=== PATIENT | female | born 1985 | race Caucasian/White ===

== ENCOUNTER 2019-11-05 19:51 | Emergency (ER) | payer MEDICAID ==
[2019-11-05 21:30] LABS: BASOPHILS # (AUTO) 0.1 10^3/uL (0.0-0.1); BASOPHILS % (AUTO) 0.5 %; EOSINOPHILS # (AUTO) 0.2 10^3/uL (0.0-0.7); EOSINOPHILS % (AUTO) 1.6 %; HGB - HEMOGLOBIN 11.2 g/dL (12.0-16.0); LYMPHOCYTES # (AUTO) 2.8 10^3/uL (1.5-3.5); LYMPHOCYTES % (AUTO) 30.5 %; MEAN CORPUSCULAR HEMOGLOBIN 30.9 pg (27.0-31.0); MEAN CORPUSCULAR VOLUME 96.4 fL (81.0-99.0); MEAN PLATELET VOLUME 8.8 fL (7.9-10.8); MONOCYTES # (AUTO) 0.8 10^3/uL (0.0-1.0); MONOCYTES % (AUTO) 8.9 %; NEUTROPHILS # (AUTO) 5.4 10^3/uL (1.5-6.6); NEUTROPHILS % (AUTO) 58.2 %; PLT - PLATELET COUNT 337 10^3/uL (130-450); RED BLOOD COUNT 3.63 10^6/uL (4.20-5.40); RED CELL DISTRIBUTION WIDTH 14.1 % (12.0-15.0); WHITE BLOOD COUNT 9.3 x10^3/uL (4.8-10.8)
[2019-11-05 21:42] LABS: ALBUMIN 4.1 g/dL (3.2-5.5); ALBUMIN/GLOBULIN RATIO 1.2 (1.0-2.2); BILIRUBIN,TOTAL 0.5 mg/dL (0.2-1.0); CALCIUM 9.1 mg/dL (8.5-10.3); CREATININE 0.8 mg/dL (0.4-1.0); TOTAL PROTEIN 7.4 g/dL (6.7-8.2)
--- NOTE | 2019-11-05 21:43 | ED Physician Documentation ---
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 She became lightheaded and felt like she might pass out, and had generalized weakness and difficulty maintaining a steady gait or even standing upright. Denies palpitations. Symptoms have resolved by the time of this H+P Review of Systems Constitutional: reports: Reviewed and negative Cardiac: reports: Chest pain / pressure. denies: Palpitations, Pedal edema, Calf pain Respiratory: reports: Dyspnea. denies: Cough GI: reports: Reviewed and negative Neurologic: reports: Generalized weakness. 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: Tubal ligation Cardiovascular: Pacemaker - Present Medications Home Medications: Ambulatory Orders Medication Instructions Recorded Confirmed No Known Home Medications 11/05/19 11/05/19 - Allergies Allergies/Adverse Reactions: Allergies Allergy/AdvReac Type Severity Reaction Status Date / Time Benzodiazepines Allergy Unknown Verified 11/05/19 21:21 pineapple Allergy Unknown Verified 11/05/19 19:58 - Social History Does the pt smoke?: No Smoking Status: Never smoker Does the pt drink ETOH?: No Does the pt have substance abuse?: No - Immunizations Immunizations are current?: Yes - POLST Patient has POLST: No PD ED PE NORMAL - Vitals Vital signs reviewed: Yes - General General: Alert and oriented X 3, No acute distress, Well developed/nourished - Cardiac Cardiac: RRR, No murmur - Respiratory Respiratory: No respiratory distress, Clear bilaterally - Abdomen Abdomen: Soft, Non tender - Derm Derm: Normal color, Warm and dry - Extremities Extremities: No edema Results - Vitals Vitals: Oxygen O2 Source Room air - EKG (time done) No standard instances Rate: Rate (enter#) (82) Rhythm: NSR [place]: Normal Intervals: Normal [place], Wide QRS (NSIVCD) QRS: Normal Ischemia: Normal ST segments - Labs Labs: Laboratory Tests 11/05/19 11/05/19 11/05/19 21:23 21:23 21:23 WBC 9.3 RBC 3.63 L Hgb 11.2 L Hct 35.0 L MCV 96.4 MCH 30.9 MCHC 32.0 RDW 14.1 Plt Count 337 MPV 8.8 Neut # (Auto) 5.4 Lymph # (Auto) 2.8 [place] # (Auto) 0.8 Eos # (Auto) 0.2 Baso # (Auto) 0.1 Absolute Nucleated RBC 0.00 Nucleated RBC % 0.0 D-Dimer 211.4 Sodium 139 Potassium 3.7 Chloride 103 Carbon Dioxide 26 Anion Gap 10.0 BUN 13 Creatinine 0.8 Estimated GFR (MDRD) 83 L Glucose 91 Calcium 9.1 Total Bilirubin 0.5 AST 24 ALT 24 Alkaline Phosphatase 46 Total Protein 7.4 Albumin 4.1 Globulin 3.3 Albumin/Globulin Ratio 1.2 Lipase 31 PD MEDICAL DECISION MAKING - ED course Complexity details: reviewed results, re-evaluated patient, considered differential, d/w patient Departure - Departure Disposition: 01 Home, Self Care Clinical Impression: Near syncope Condition: Good Instructions: ED Near Syncope Unkn Follow-Up: Brandon Cardoza MD [Primary Care Provider] - Discharge Date/Time: 11/05/19 23:48
[2019-11-05 23:46] VITALS: BP 149/75
== END 2019-11-05 23:48 | disposition home or self-care (01) ==
LOC: ED 19:51
DX: R55 Syncope and collapse (principal)
CPT/HCPCS: 36415; 80053; 83690; 85025; 85379; 93005; 99284

== ENCOUNTER 2021-05-09 15:30 | Emergency (ER) | payer MEDICAID ==
--- NOTE | 2021-05-09 15:40 | ED Physician Documentation ---
History of Present Illness - Stated complaint Stated Complaint: TACHICARDIA - History obtained from History obtained from: Patient - Additonal information Additional information: 36-year-old woman with history of dextrocardia and third-degree heart block with pacemaker in place. Has a history of tachydysrhythmias and was previously on metoprolol, she thinks 50 mg once a day for same. Has not been on it in several years. She has a pacemaker in place, its 5 years old. Over the last 2 weeks she has noticed generally asymptomatic tachycardias, often at night with resting heart rates in the 120s. Today at work she noticed the rapid heart rate and then had a presyncopal episode. There was no injury. No associated chest pain or trouble breathing. 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 Cardiovascular: Pacemaker - Present Medications Home Medications: Ambulatory Orders Medication Instructions Recorded Confirmed Metoprolol Succinate [Toprol Xl] 50 mg PO DAILY #90 tablet 05/09/21 - Allergies Allergies/Adverse Reactions: Allergies Allergy/AdvReac Type Severity Reaction Status Date / Time Benzodiazepines Allergy Unknown Verified 05/09/21 15:47 pineapple Allergy Unknown Verified 05/09/21 15:47 - Social History Does the pt smoke?: No Smoking Status: Never smoker Does the pt drink ETOH?: No Does the pt have substance abuse?: No - Immunizations Immunizations are current?: Yes - POLST Patient has POLST: No PD ED PE NORMAL - Vitals Vital signs reviewed: Yes - General General: Alert and oriented X 3, No acute distress - HEENT HEENT: PERRL, EOMI - Neck Neck: Supple, no meningeal sign, No bony TTP - Cardiac Cardiac: RRR, No murmur - Respiratory Respiratory: No respiratory distress, Clear bilaterally - Abdomen Abdomen: Normal bowel sounds, Soft, Non tender - Back Back: No CVA TTP, No spinal TTP - Derm Derm: Normal color, Warm and dry - Extremities Extremities: No edema, No calf tenderness / cord - Neuro Neuro: Alert and oriented X 3, Normal speech Results - Vitals Vitals: Vital Signs - 24 hr 05/09/21 05/09/21 15:43 16:19 Temperature 36.7 C 36.7 C Heart Rate 74 69 Respiratory 16 19 Rate Blood Pressure 133/83 H 98/70 O2 Saturation 99 99 Oxygen O2 Source Room air - EKG (time done) 1526 Rate: Rate (enter#) (84) Rhythm: NSR [place]: Normal Intervals: Normal [place] QRS: Normal Ischemia: Non specific changes Compare to prior EKG: Unchanged from prior EKG (no chg from 10/2019) - Labs Labs: Laboratory Tests 05/09/21 05/09/21 05/09/21 16:00 16:00 16:00 WBC 7.3 RBC 3.77 L Hgb 11.8 L Hct 36.1 L MCV 95.8 MCH 31.3 H MCHC 32.7 RDW 13.1 Plt Count 369 MPV 9.0 Neut # (Auto) 5.0 Lymph # (Auto) 1.5 [place] # (Auto) 0.6 Eos # (Auto) 0.1 Baso # (Auto) 0.1 Absolute Nucleated RBC 0.00 Nucleated RBC % 0.0 Sodium 136 Potassium 3.4 L Chloride 102 Carbon Dioxide 26 Anion Gap 8.0 BUN 9 Creatinine 1.0 Estimated GFR (MDRD) 63 L Glucose 116 H Calcium 9.2 Magnesium 1.9 TSH 0.65 PD MEDICAL DECISION MAKING - ED course ED course: 36-year-old woman with history of tachydysrhythmias and bradycardias with pacemaker in place presents after a symptomatic tachydysrhythmia. No arrhythmias on the monitor here. We will restart her metoprolol also potassium supplementation orally. 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 Pending follow-up with casino host I am restarting metoprolol. I am prescribing a full 3 months worth since sometimes it is difficult to get into a casino host these days.
[2021-05-09 16:14] LABS: BASOPHILS # (AUTO) 0.1 10^3/uL (0.0-0.1); BASOPHILS % (AUTO) 0.7 %; EOSINOPHILS # (AUTO) 0.1 10^3/uL (0.0-0.7); EOSINOPHILS % (AUTO) 0.8 %; HCT - HEMATOCRIT 36.1 % (37.0-47.0); HGB - HEMOGLOBIN 11.8 g/dL (12.0-16.0); LYMPHOCYTES # (AUTO) 1.5 10^3/uL (1.5-3.5); LYMPHOCYTES % (AUTO) 21.2 %; MEAN CORPUSCULAR HEMOGLOBIN 31.3 pg (27.0-31.0); MEAN CORPUSCULAR HGB CONC 32.7 g/dL (32.0-36.0); MEAN CORPUSCULAR VOLUME 95.8 fL (81.0-99.0); MONOCYTES # (AUTO) 0.6 10^3/uL (0.0-1.0); MONOCYTES % (AUTO) 7.8 %; NEUTROPHILS % (AUTO) 69.2 %; PLT - PLATELET COUNT 369 10^3/uL (130-450); RED BLOOD COUNT 3.77 10^6/uL (4.20-5.40); RED CELL DISTRIBUTION WIDTH 13.1 % (12.0-15.0); WHITE BLOOD COUNT 7.3 x10^3/uL (4.8-10.8)
[2021-05-09 16:19] LABS: CALCIUM 9.2 mg/dL (8.5-10.3); MAGNESIUM 1.9 mg/dL (1.7-2.8); POTASSIUM 3.4 mmol/L (3.5-5.0)
[2021-05-09] MEDS ORDERED: METOPROLOL SUCCINATE 50 MG TABLET PO STA (16:49)
[2021-05-09] MEDS ORDERED: POTASSIUM CHLORIDE 20 MEQ TABLET PO STA (16:50)
[2021-05-09 18:50] VITALS: BP 128/79
== END 2021-05-09 18:50 | disposition home or self-care (01) ==
LOC: ED 15:30
DX: I47.1 Supraventricular tachycardia (principal); Z95.0 Presence of cardiac pacemaker
CPT/HCPCS: 36415; 80048; 83735; 84443; 85025; 93005; 99284; A9270

== ENCOUNTER 2021-05-16 19:12 | Emergency (ER) | payer OTHER, MEDICAID ==
[2021-05-16 19:40] VITALS: BP 150/87
[2021-05-16 19:55] LABS: HCT - HEMATOCRIT 36.6 % (37.0-47.0); HGB - HEMOGLOBIN 11.8 g/dL (12.0-16.0); MEAN CORPUSCULAR HEMOGLOBIN 31.4 pg (27.0-31.0); MEAN CORPUSCULAR HGB CONC 32.2 g/dL (32.0-36.0); MEAN CORPUSCULAR VOLUME 97.3 fL (81.0-99.0); MEAN PLATELET VOLUME 8.6 fL (7.9-10.8); RED BLOOD COUNT 3.76 10^6/uL (4.20-5.40); RED CELL DISTRIBUTION WIDTH 13.2 % (12.0-15.0); WHITE BLOOD COUNT 10.5 x10^3/uL (4.8-10.8)
[2021-05-16 20:07] LABS: ALBUMIN 4.4 g/dL (3.2-5.5); ALBUMIN/GLOBULIN RATIO 1.3 (1.0-2.2); BILIRUBIN,TOTAL 0.6 mg/dL (0.2-1.0); CALCIUM 9.2 mg/dL (8.5-10.3); CREATININE 0.8 mg/dL (0.4-1.0); POTASSIUM 3.2 mmol/L (3.5-5.0); TOTAL PROTEIN 7.9 g/dL (6.7-8.2)
[2021-05-16 20:14] LABS: GLUCOSE, URINE (UA) NEGATIVE (NEGATIVE); KETONES,URINE (UA) TRACE mg/dL (NEGATIVE); LEUKOCYTE ESTERASE, URINE NEGATIVE (NEGATIVE); NITRITE,URINE NEGATIVE (NEGATIVE); OCCULT BLOOD,URINE NEGATIVE (NEGATIVE); PH,URINE 5.5 PH (5.0-7.5); PROTEIN,URINE NEGATIVE (NEGATIVE); UROBILINOGEN,URINE 0.2 (NORMAL) E.U./dL (NORMAL)
--- NOTE | 2021-05-16 20:14 | ED Physician Documentation ---
History of Present Illness - Stated complaint Stated Complaint: EXPOSURE - Chief complaint Chief Complaint: General - Additonal information Additional information: 36-year-old female who works here at [employer] is checking into the ER after a blood exposure. She was helping a provider suture when a little bit of blood splashed on the lower corner of her left eyelid. She immediately went to rinse her eye. But was told she needed to check in. No previous history of HIV or hepatitis. 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 Cardiovascular: Pacemaker - Present Medications Home Medications: Ambulatory Orders Medication Instructions Recorded Confirmed Metoprolol Succinate [Toprol Xl] 50 mg PO DAILY #90 tablet 05/09/21 Cyclosporine, Modified 100 mg PO BID 05/16/21 05/16/21 [Cyclosporine Modified] Etanercept [Enbrel] 05/16/21 - Allergies Allergies/Adverse Reactions: Allergies Allergy/AdvReac Type Severity Reaction Status Date / Time Benzodiazepines Allergy Unknown Verified 05/16/21 19:36 pineapple Allergy Unknown Verified 05/16/21 19:36 - Social History Does the pt smoke?: No Smoking Status: Never smoker Does the pt drink ETOH?: No Does the pt have substance abuse?: No - Immunizations Immunizations are current?: Yes - POLST Patient has POLST: No PD ED PE NORMAL - General General: Alert and oriented X 3, No acute distress - HEENT HEENT: PERRL - Neck Neck: Supple, no meningeal sign - Cardiac Cardiac: RRR, No murmur - Respiratory Respiratory: Clear bilaterally - Abdomen Abdomen: Normal bowel sounds, Soft, Non tender, Non distended Results - Vitals Vitals: Vital Signs - 24 hr 05/16/21 19:36 Temperature 36.5 C Heart Rate 70 Respiratory 16 Rate Blood Pressure 150/87 H O2 Saturation 98 Oxygen O2 Source Room air - Labs Labs: Laboratory Tests 05/16/21 05/16/21 19:50 19:50 WBC 10.5 RBC 3.76 L Hgb 11.8 L Hct 36.6 L MCV 97.3 MCH 31.4 H MCHC 32.2 RDW 13.2 Plt Count 319 MPV 8.6 Sodium 138 Potassium 3.2 L Chloride 102 Carbon Dioxide 27 Anion Gap 9.0 BUN 12 Creatinine 0.8 Estimated GFR (MDRD) 82 L Glucose 108 H Calcium 9.2 Total Bilirubin 0.6 AST 17 ALT 21 Alkaline Phosphatase 52 Total Protein 7.9 Albumin 4.4 Globulin 3.5 Albumin/Globulin Ratio 1.3 PD MEDICAL DECISION MAKING - ED course Complexity details: d/w patient ED course: 36-year-old employee here who was checked into the ER after blood exposure. A small droplet of blood splashed onto her left eye when she was helping a provider suture. This seem to be on the lower lid itself and not within the conjunctiva. She rinsed her eye thoroughly. Screening hepatitis and HIV labs are pending. She is to follow-up with employee health in about 6 weeks to ensure seroconversion has not occurred though this is very low risk. Pep prophylaxis is not indicated or offered at this time. Departure - Departure Disposition: 01 Home, Self Care Clinical Impression: Exposure to blood or body fluid Condition: Stable Record reviewed to determine appropriate education?: Yes Comments: Veronique you are seen in the emergency department after a blood exposure. A small droplet of blood splashed on your lower eyelid. This is a very low risk exposure. We have obtained blood to check your status for HIV and hepatitis. However postexposure prophylaxis with antivirals is not recommended at this time considering the low risk exposure. You do need to follow-up with employee health in about 6 to 8 weeks to have your labs rechecked to ensure that there is no seroconversion.
[2021-05-16 20:16] LABS: BILIRUBIN,URINE NEGATIVE (NEGATIVE); CLARITY,URINE CLEAR (CLEAR); ICTOTEST,URINE NEGATIVE
[2021-05-18 10:51] LABS: HEPATITIS C ANTIBODY NON-REACTIVE (NON-REACTIVE)
[2021-05-18 15:12] LABS: HIV AG/AB 4TH GEN NON-REACTIVE (NON-REACTIVE)
== END 2021-05-16 20:20 | disposition home or self-care (01) ==
LOC: ED 19:12
DX: Z77.21 Contact with and (suspected) exposure to potentially hazardous body fluids (principal)
CPT/HCPCS: 36415; 80053; 81001; 81003; 85027; 86317; 86803; 87086; 87389; 99281; 99283

== ENCOUNTER 2022-05-22 20:44 | Emergency (ER) | payer MEDICAID ==
[2022-05-22 20:51] VITALS: BP 143/80
[2022-05-22] MEDS ORDERED: DOXYCYCLINE 100 MG TABLET PO STA (22:00)
[2022-05-22] MEDS ORDERED: AZITHROMYCIN 250 MG TABLET PO STA (22:04)
--- NOTE | 2022-05-22 22:06 | ED Physician Documentation ---
PD HPI URI - Stated complaint Stated Complaint: COUGH,CHEST PX - Chief complaint Chief Complaint: Resp - History obtained from History obtained from: Patient - Additional information Additional information: Patient presenting for evaluation of productive cough that has been present since May 08. Patient has had televisit with her primary care doctor and has been using codeine as well as Tessalon without improvement in her symptoms. Patient is on Stelara for psoriasis And PCP recommended that she have a chest x- ray to evaluate for pneumonia.Cough is productive of yellow sputum. No hemoptysis.Nothing makes her symptoms better or worse. She has taken multiple home COVID test which have all been negative.She denies fever, chest pain, abdominal pain, vomiting or diarrhea. 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 Cardiovascular: Pacemaker - Present Medications Home Medications: Ambulatory Orders Medication Instructions Recorded Confirmed Metoprolol Succinate [Toprol Xl] 50 mg PO DAILY #90 tablet 05/09/21 Cyclosporine, Modified 100 mg PO BID 05/16/21 05/16/21 [Cyclosporine Modified] Etanercept [Enbrel] 05/16/21 Azithromycin [Zithromax] 1 tab PO DAILY #4 tab 05/22/22 Doxycycline Hyclate 100 mg PO BID #14 tab 05/22/22 - Allergies Allergies/Adverse Reactions: Allergies Allergy/AdvReac Type Severity Reaction Status Date / Time Benzodiazepines Allergy Unknown Verified 05/16/21 19:36 pineapple Allergy Unknown Verified 05/16/21 19:36 - Social History Does the pt smoke?: No Smoking Status: Never smoker Does the pt drink ETOH?: No Does the pt have substance abuse?: No - Immunizations Immunizations are current?: Yes - POLST Patient has POLST: No PD ED PE NORMAL - General General: Alert and oriented X 3, No acute distress, Well developed/nourished - HEENT HEENT: Atraumatic, Moist mucous membranes, Pharynx benign, Other (No sinus tenderness) - Neck Neck: Supple, no meningeal sign - Cardiac Cardiac: RRR, No murmur, Strong equal pulses - Respiratory Respiratory: No respiratory distress, Other (Scattered rhonchi right upper lobe) - Derm Derm: Warm and dry - Extremities Extremities: No edema - Neuro Neuro: Normal speech Results - Vitals Vitals: Vital Signs - 24 hr 05/22/22 20:49 Temperature 36.7 C Heart Rate 83 Respiratory 18 Rate Blood Pressure 143/80 H O2 Saturation 100 Oxygen O2 Source Room air - Rads (name of study) Chest x-ray Radiology: EMP read contemporaneously (?Right upper lobe infiltrate) PD MEDICAL DECISION MAKING - ED course Complexity details: reviewed results, re-evaluated patient ED course: Patient with productive cough x2 weeks.Some rhonchi heard on exam and possible infiltrate seen on chest x-ray. Given her symptoms and exam findings we will treat for community-acquired pneumonia. Patient advised on strict return precautions. She is comfortable with plan for discharge. Departure - Departure Disposition: 01 Home, Self Care Clinical Impression: Community acquired pneumonia Qualifiers: Laterality: right Lung location: upper lobe of lung Qualified Code(s): J18.9 - Pneumonia, unspecified organism Condition: Stable Instructions: ED Pneumonia Adult Follow-Up: Brandon Cardoza MD [Primary Care Provider] - Prescriptions: Doxycycline Hyclate 100 mg PO BID #14 tab Azithromycin [Zithromax] 1 tab PO DAILY #4 tab Comments: Your chest x-ray shows an infiltrate in the right upper lobe which is concerning for pneumonia given your symptoms. I have started you on 2 antibiotics called azithromycin and doxycycline. I have sent the prescriptions to [facility] in [place]. Please make sure to complete both courses of antibiotics. Please also follow-up with your primary care doctor. Give any worsening symptoms please return to the emergency department. Discharge Date/Time: 05/22/22 22:15
--- NOTE | 2022-05-22 22:34 | XRAY Report ---
PROCEDURE: Chest 1 View X-Ray INDICATIONS: productive cough x 2 weeks TECHNIQUE: One view of the chest was acquired. COMPARISON: None available. FINDINGS: Surgical changes and devices: There is a right chest wall dual-lead pacemaker. Lungs and pleura: No pleural effusions or pneumothorax. Lungs are clear. Mediastinum: There is dextrocardia as labeled on the study. Heart size is normal. Bones and chest wall: No suspicious bony lesions. Overlying soft tissues appear unremarkable. IMPRESSION: 1. No acute cardiomegaly disease. 2. Demonstration of dextrocardia based on the laterality marker. Recommend correlation with clinical history. Reviewed by: Kranthi Almonte MD on 05/22/2022 10:33 PM PDT Approved by: Kranthi Almonte MD on 05/22/2022 10:33 PM PDT Station ID: [id number]
== END 2022-05-22 22:15 | disposition home or self-care (01) ==
LOC: ED 20:44
DX: J18.9 Pneumonia, unspecified organism (principal)
CPT/HCPCS: 71045; 99283; 99284; A9270